=== PATIENT | female | born 1955 | race Asian ===

== ENCOUNTER 2018-03-26 16:26 | Emergency (ER) | payer OTHER ==
[~2018-03-26] VITALS: Ht 154.9 cm; Wt 47.6 kg
[2018-03-26 16:36] VITALS: BP_SYST 136
--- NOTE | 2018-03-26 16:36 | NUR ---
Placed in room 06 . Placed on gluing machine adjuster, blood pressure machine and pulse oximeter. To gown for exam. Side rails up. Report given to Leonel CODY
--- NOTE | 2018-03-26 16:36 | NUR ---
Pt c/o palpitations x 5 days, denies c/o C/P or SOB, no LOC. Pt AAOx4, speaks in full sentences. Daughter at bedside.
--- NOTE | 2018-03-26 16:38 | NUR ---
Dr. Choudhury at bedside.
--- NOTE | 2018-03-26 16:50 | NUR ---
Lab at bedside.
[2018-03-26 17:06] LABS: BASOPHILS % (AUTO) 0.4 % (0.0-2.0); EOSINOPHILS % (AUTO) 0.7 % (0.0-4.0); HEMATOCRIT 40.6 % (36-48); LYMPHOCYTES # (AUTO) 1.5 K/uL (1.0-5.5); LYMPHOCYTES % (AUTO) 21.3 % (20.5-51.5); MEAN CORPUSCULAR HEMOGLOBIN 31 pg (27-31); MEAN CORPUSCULAR HGB CONC 35 % (32-36); MEAN CORPUSCULAR VOLUME 91 fL (79.0-98.0); MONOCYTES # (AUTO) 0.4 K/uL (0.0-1.0); MONOCYTES % (AUTO) 5.1 % (1.7-9.3); NEUTROPHILS # (AUTO) 5.1 K/uL (1.8-7.7); NEUTROPHILS % (AUTO) 72.5 % (40.0-70.0); PLATELET COUNT (AUTO) 218 K/uL (130-430); RED BLOOD CELL COUNT(AUTO) 4.46 MIL/uL (4.2-6.2); RED CELL DISTRIBUTION WIDTH 10.9 % (9.0-15.0)
[2018-03-26 17:10] LABS: CALCIUM 8.8 mg/dL (8.4-11.0); CREATININE 0.92 mg/dL (0.55-1.30); POTASSIUM 3.7 mmol/L (3.5-5.1)
[2018-03-26 17:13] LABS: PROTHROMBIN TIME 9.9 SECS (9.5-12.5)
[2018-03-26 17:14] LABS: ALBUMIN 3.6 g/dL (3.4-4.8); TOTAL BILIRUBIN 0.6 mg/dL (0.0-1.0)
[2018-03-26 17:43] LABS: CKMB RELATIVE INDEX 0.9 (0.0-2.9)
--- NOTE | 2018-03-26 17:44 | NUR ---
Pt denies c/o C/P or SOB, denies palpitations at this time. Family member at bedside.
--- NOTE | 2018-03-26 18:35 | NUR ---
Patient given written and verbal discharge instructions and verbalizes understanding. ER MD Choudhury discussed with patient the results and treatment provided. Patient in stable condition. ID arm band removed. No Rx given. Patient educated on pain management and to follow up with PMD. Pain Scale 0. Opportunity for questions provided and answered. Medication side effect fact sheet provided.
[2018-03-26 18:43] VITALS: BP_SYST 141
== END 2018-03-26 18:35 | disposition home or self-care (01) ==
LOC: SED 16:26
DX: R00.2 Palpitations (principal); I10 Essential (primary) hypertension; R79.1 Abnormal coagulation profile
CPT/HCPCS: 36415; 71045; 80053; 82550-TC; 82553-TC; 83880; 84484; 85025; 85610-TC; 85730-TC; 93005; 99285